=== PATIENT | male | born 1960 | race Caucasian/White ===

== ENCOUNTER 2020-08-07 17:58 | Emergency (ER) | payer OTHER ==
[2020-08-07 18:11] VITALS: BP 146/91; PULSE 71; BMI 32.1
[2020-08-07 18:12] VITALS: TEMP 98.2
--- NOTE | 2020-08-07 18:43 | PDOC ---
History of Present Illness - General Chief Complaint: Injury Stated Complaint: HIT HEAD Time Seen by Provider: 08/07/20 18:30 History Source: Patient Exam Limitations: Clinical Condition - History of Present Illness Initial Comments: 08/07/20 18:46 Patient with no significant past medical history present for evaluation status post accidentally hitting his forward with a wooden log while doing woodwork 2 hours ago. Patient reported no pain now. Denies blurry vision, change in vision, nausea, vomiting, dizziness. Patient denies any symptoms. Patient came in for evaluation as he was asked by his to come in for evaluation. Occurred: reports: just prior to arrival Past History - Medical History Allergies/Adverse Reactions: Allergies Allergy/AdvReac Type Severity Reaction Status Date / Time codeine Allergy Severe Nausea Verified 08/07/20 18:08 Home Medications: Ambulatory Orders Lisinopril [Zestril] 40 mg PO DAILY 12/19/15 Omeprazole 20 mg PO DAILY 12/19/15 Sildenafil Citrate 20 mg PO DAILY 12/19/15 Ibuprofen/Diphenhydramine HCl [Advil Pm Liqui-Gels] 1 each PO BID #0 12/22/15 Collagenase Clostridium Hist. [Santyl] 1 applic TP DAILY #90 oint...g. 04/14/18 Mupirocin Cream [Bactroban 2% Cream -] 1 applic TP DAILY #1 tube 05/01/18 Collagenase Clostridium Hist. [Santyl] 1 applic TP DAILY #90 oint...g. 05/12/18 Mupirocin Cream [Bactroban 2% Cream -] 1 applic TP DAILY #1 tube 05/12/18 Collagenase Clostridium Hist. [Santyl] 1 applic TP DAILY #90 oint...g. 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) COPD: No Diabetes: Yes (BORDERLINE) GI Disorders: Yes (GERD) - Psycho-Social/Smoking History Smoking History: Former smoker Have you smoked in the past 12 months: No Number of Cigarettes Smoked Daily: 0 If you are a former smoker, when did you quit?: 2019 Information on smoking cessation initiated: No - Substance Abuse Hx (Audit-C & DAST Scrn) How often the patient has a drink containing alcohol: Monthly or less Number of drinks the patient has on a typical day: 1 or 2 How often the patient has six or more drinks on one occasion: Never Score: In Men: 4 or > Positive; In Women: 3 or > Positive: 1 Screen Result (Pos requires Nsg. Audit-10AR): Negative In the last yr the pt used illegal drug/Rx for NonMed reason: No Score: Yes response is considered Positive: 0 Screen Result (Positive result requires Nsg. DAST-10): Negative Review of Systems - Review of Systems Able to Perform ROS?: Yes Is the patient limited Faroese proficient: No Constitutional: No: Chills, Fever, Malaise HEENTM: No: Symptoms Reported, See HPI, Eye Pain, Blurred Vision, Tearing, Recent change in vision, Double Vision, Cataracts, Ear Pain, Ocular Prothesis, Ear Discharge, Nose Pain, Nose Congestion, Tinnitus, Nose Bleeding, Hearing Loss, Throat Pain, Throat Swelling, Mouth Pain, Dental Problems, Difficulty Swallowing, Mouth Swelling, Other Respiratory: No: Symptoms reported, See HPI, Cough, Orthopnea, Shortness of Breath, SOB with Exertion, SOB at Rest, Stridor, Wheezing, Productive cough, Hemoptysis, Other Cardiac (ROS): No: Symptoms Reported, See HPI, Chest Pain, Edema, Irregular Heart Rate, Lightheadedness, Palpitations, Syncope, Chest Tightness, Other ABD/GI: No: Symptoms Reported, Nausea, Vomiting Musculoskeletal: No: Symptoms Reported, See HPI, Muscle Pain Integumentary: No: Symptoms Reported, Bruising, Change in Color, Erythema Neurological: No: Symptoms reported, See HPI, Headache, Numbness, Paresthesia, Weakness, Unsteady Gait, Dizziness All Other Systems: Reviewed and Negative *Physical Exam - Vital Signs Last Vital Signs Temp Pulse Resp BP Pulse Ox 98.2 F 71 18 146/91 98 08/07/20 18:08 08/07/20 18:08 08/07/20 18:08 08/07/20 18:08 08/07/20 18:08 - Physical Exam 08/07/20 18:55 GENERAL: Well developed, well nourished. Awake and alert. No acute distress. HEENT: Normocephalic, atraumatic. PERRLA, EOMI. No conjunctival pallor. Sclera are non- icteric. Moist mucous membranes. Oropharynx is clear. NECK: Supple. Full ROM. PULMONARY: No evidence of respiratory distress. MUSCULOSKELETAL Normal range of motion at all joints. No bony deformities or tenderness. SKIN: Warm and dry. Normal capillary refill. No forehead ecchymosis, bruising or open wounds. No erythema to forehead or skin of the scalp. NEUROLOGICAL: Alert, awake, appropriate. Cranial nerves 2-12 intact. No deficits to light touch in face, upper extremities and lower extremities. No motor deficits in the in face, upper extremities and lower extremities. Normal speech. Normal tandem walking. Gait is normal without ataxia. PSYCHIATRIC: Cooperative. Good eye contact. Appropriate mood and affect. General Appearance: Yes: Nourished, Appropriately Dressed. No: Apparent Distress Medical Decision Making - Medical Decision Making 08/07/20 18:53 Patient with no significant past medical history present for evaluation status post accidentally hitting his forward with a wooden log while doing woodwork 2 hours ago. Patient reported no pain now. Denies blurry vision, change in vision, nausea, vomiting, dizziness. Patient denies any symptoms. Patient came in for evaluation as he was asked by his to come in for evaluation. Clinical exam unremarkable with normal neuro exam. Pupil equal and reflective to light bilateral. Patient walking with normal gait. Normal tandem walking. Symptoms likely forehead contusion which has resolved now. Discussed with patient the option of doing a head CT versus observation and advised patient CT is not warranted at this time as he is asymptomatic and patient agrees. Patient educated on postconcussion syndrome and advised to come back to the emergency room if worsening symptoms for reevaluation and possible head CT . Patient stable for discharge and left department with normal gait without distress Discharge - Discharge Information Problems reviewed: Yes Clinical Impression/Diagnosis: Head contusion Qualifiers: Encounter type: initial encounter Contusion of head detail: unspecified part of head Qualified Code(s): S00.93XA - Contusion of unspecified part of head, initial encounter Condition: Improved Disposition: HOME - Admission No - Follow up/Referral Referrals: Phan Palacios MD [Primary Care Provider] - - Patient Discharge Instructions Patient Printed Discharge Instructions: DI for Postconcussion Syndrome Additional Instructions: Your exam is normal at this time and shows no concerning symptoms of intracranial bleeding or abnormality at this time. Observe for any new symptoms including worsening headache, lightheadedness, nausea, excessive sleepiness and come right back to the emergency room if new symptoms or worsening symptoms for reevaluation and possible head CAT scan. - Post Discharge Activity
== END 2020-08-07 18:44 | disposition home or self-care (01) ==
LOC: JERFT 17:58
DX: S00.93XA Contusion of unspecified part of head, initial encounter (principal)
CPT/HCPCS: 99283-25

== ENCOUNTER 2022-02-06 16:36 | Emergency (ER) | payer OTHER ==
[2022-02-06 17:03] VITALS: BP 156/89; PULSE 95; TEMP 98.6; BMI 33.5
== END 2022-02-06 23:02 | disposition home or self-care (01) ==
LOC: JER 16:36
DX: S00.03XA Contusion of scalp, initial encounter (principal); W19.XXXA Unspecified fall, initial encounter
CPT/HCPCS: 70450-TC; 71046-TC-FY; 72125-TC; 99284-25

== ENCOUNTER 2022-07-18 08:06 | Inpatient (IN) | payer OTHER ==
[2022-07-18 08:26] VITALS: BMI 24.4
[2022-07-18] MEDS ORDERED: FAMOTIDINE 20 MG/50 ML IVPB 20 MG/50 ML MG IVPB ONE ×2 (08:43→08:51)
[2022-07-18] MEDS ORDERED: SODIUM CHLORIDE 0.9% 500 ML INFUS.BAG IV ONE (08:43)
[2022-07-18] MEDS ORDERED: ACETAMINOPHEN 1000 MG/100 ML BAG IVPB ONE (08:43)
[2022-07-18] MEDS ORDERED: ACETAMINOPHEN INJECTION 100 ML IVPB ONE (08:50)
[2022-07-18] MEDS ORDERED: MAG HYDROX/AL HYDROX/SIMETH 30 ML UNIT-DOSE CUP ONE (08:51)
[2022-07-18] MEDS ORDERED: MAG HYDROX/AL HYDROX/SIMETH 30 ML UNIT-DOSE CUP PO ONE (09:15)
[2022-07-18 10:16] LABS: BASO % 0.1 % (0-2.0); EOS % 0.1 % (0-4.5); HEMATOCRIT 47.9 % (35.4-49); HEMOGLOBIN 16.3 GM/dL (11.7-16.9); LYMPH % 4.7 % (8-40); MCH 31.1 pg (25.7-33.7); MCHC 34.1 g/dl (32.0-35.9); MEAN CELL VOLUME 91.3 fl (80-96); MEAN PLT VOLUME 8.3 fl (7.5-11.1); MONO % 8.9 % (3.8-10.2); NEUT % 86.2 % (42.8-82.8); PLATELET COUNT 239 10^3/uL (134-434); RBC 5.25 M/mm3 (4.00-5.60); WHITE BLOOD COUNT 14.5 K/mm3 (4.0-10.0)
[2022-07-18 10:21] LABS: ALBUMIN 3.6 g/dl (3.4-5.0); BLOOD UREA NITROGEN 23.9 mg/dL (7-18)
[2022-07-18 10:24] LABS: CREATININE 1.3 mg/dL (0.55-1.3)
[2022-07-18 10:25] LABS: LACTIC ACID 4.7 mmol/L (0.4-2.0); TOT PROT 7.3 g/dl (6.4-8.2)
[2022-07-18] MEDS ORDERED: LACTATED RINGERS SOLUTION 1000 ML INFUS.BAG IV ONE (10:46)
[2022-07-18] MEDS ORDERED: ONDANSETRON 4 MG/2 ML VIAL IVPUSH ONE (10:51)
[2022-07-18 11:05] LABS: ACTIVATED PTT 27.5 SECONDS (25.2-36.5); INR 1.07 (0.83-1.09); PROTHROMBIN TIME (PATIENT) 12.3 SEC (9.7-13.0)
[2022-07-18] MEDS ORDERED: ONDANSETRON 4 MG/2 ML VIAL ONE (11:33)
[2022-07-18 11:45] LABS: CALCIUM 8.6 mg/dL (8.5-10.1)
[2022-07-18 11:46] LABS: BLOOD UREA NITROGEN 21.8 mg/dL (7-18)
[2022-07-18 11:58] LABS: LACTIC ACID 2.9 mmol/L (0.4-2.0)
[2022-07-18] MEDS ORDERED: ONDANSETRON 4 MG/2 ML VIAL IVPUSH PRN (13:05)
[2022-07-18] MEDS ORDERED: LORazepam 2 MG/ML SDV VIAL IVPUSH PRN (13:06)
[2022-07-18] MEDS ORDERED: SODIUM CHLORIDE 0.9%/KCL 20 MEQ/1,000 ML INFUS.BAG IV SCH (13:15)
[2022-07-18] MEDS ORDERED: MAG HYDROX/AL HYDROX/SIMETH -MYLANTA- ORAL SUSPENSION PO SCH (14:00)
[2022-07-18] MEDS: ACETAMINOPHEN 1000 MG/100 ML BAG IVPB PRN (15:22)
[2022-07-18] MEDS ORDERED: IBUPROFEN 800 MG/8 ML IJ IVPB PRN (15:29)
[2022-07-18] MEDS: amLODIPine BESYLATE 10 MG TABLET (FP) PO SCH (15:42)
[2022-07-18] MEDS: LISINOPRIL 20 MG TABLET PO SCH (15:42)
[2022-07-18] MEDS ORDERED: PNEUMOC 20-VAL CONJ-DIP CRM/PF 0.5 ML SYRINGE IM ONE (17:30)
[2022-07-18] MEDS ORDERED: chlordiazePOXIDE HCL 25 MG CAPSULE PO PRN (18:04)
[2022-07-18] MEDS ORDERED: metoPROLOL SUCCINATE 25 MG TAB.SR.24H (FP) PO ONE (18:06)
[2022-07-18] MEDS: chlordiazePOXIDE HCL 25 MG CAPSULE PO SCH ×2 (18:15→22:04)
[2022-07-18] MEDS: ENOXAPARIN NA (PORCINE) 40 MG/0.4 ML DISP.SYRIN SQ SCH (18:16)
[2022-07-18] MEDS: metoPROLOL SUCCINATE 25 MG TAB.SR.24H (FP) PO SCH (21:55)
[2022-07-19] MEDS: chlordiazePOXIDE HCL 25 MG CAPSULE PO SCH ×4 (05:35→22:11)
[2022-07-19] MEDS: ACETAMINOPHEN 1000 MG/100 ML BAG IVPB PRN (05:35)
[2022-07-19] MEDS ORDERED: SODIUM CHLORIDE 0.9%/KCL 20 MEQ/1,000 ML INFUS.BAG IV SCH (08:46)
[2022-07-19] MEDS: ENOXAPARIN NA (PORCINE) 40 MG/0.4 ML DISP.SYRIN SQ SCH (08:59)
[2022-07-19] MEDS: LISINOPRIL 20 MG TABLET PO SCH (09:00)
[2022-07-19] MEDS: metoPROLOL SUCCINATE 25 MG TAB.SR.24H (FP) PO SCH ×2 (09:00→22:10)
[2022-07-19] MEDS: amLODIPine BESYLATE 10 MG TABLET (FP) PO SCH (09:01)
[2022-07-19] MEDS: PANTOPRAZOLE SODIUM 40 MG VIAL IVPUSH SCH (09:05)
[2022-07-19 09:43] LABS: BASO % 0.1 % (0-2.0); EOS % 0.1 % (0-4.5); HEMOGLOBIN 14.6 GM/dL (11.7-16.9); LYMPH % 5.1 % (8-40); MCH 30.5 pg (25.7-33.7); MCHC 33.3 g/dl (32.0-35.9); MEAN CELL VOLUME 91.7 fl (80-96); MEAN PLT VOLUME 8.1 fl (7.5-11.1); MONO % 8.6 % (3.8-10.2); NEUT % 86.1 % (42.8-82.8); PLATELET COUNT 192 10^3/uL (134-434); RBC 4.79 M/mm3 (4.00-5.60); RDW 14.1 % (11.9-15.9); WHITE BLOOD COUNT 15.1 K/mm3 (4.0-10.0)
[2022-07-19 10:05] LABS: CALCIUM 8.4 mg/dL (8.5-10.1)
[2022-07-19 10:06] LABS: ALBUMIN 3.2 g/dl (3.4-5.0)
[2022-07-19 10:07] LABS: CREATININE 0.6 mg/dL (0.55-1.3)
[2022-07-19 10:09] LABS: BILIRUBIN,TOTAL 1.3 mg/dL (0.2-1); TOT PROT 6.6 g/dl (6.4-8.2)
[2022-07-19] MEDS ORDERED: IBUPROFEN 800 MG/8 ML IJ IVPB PRN (10:09)
[2022-07-19] MEDS ORDERED: LACTATED RINGERS SOLUTION 1,000 ML/1,000 ML INFUS.BAG IV SCH ×4 (10:15→16:45)
[2022-07-19] MEDS: IBUPROFEN 800 MG/8 ML IJ IVPB PRN ×2 (12:44→18:05)
[2022-07-19] MEDS ORDERED: LABETALOL HCL 100 MG TABLET (FP) PO ONE (13:37)
[2022-07-19] MEDS ORDERED: HYDROCHLOROTHIAZIDE 25 MG TABLET (FP) PO SCH (13:45)
[2022-07-19] MEDS: KCL 10 MEQ IVPB 10 MEQ/100 ML INFUS.BAG IVPB SCH ×2 (15:20→16:46)
[2022-07-19] MEDS ORDERED: ACETAMINOPHEN 1000 MG/100 ML BAG IVPB PRN (16:00)
[2022-07-20] MEDS: chlordiazePOXIDE HCL 25 MG CAPSULE PO SCH ×4 (06:06→22:36)
[2022-07-20] MEDS ORDERED: LABETALOL HCL 100 MG TABLET (FP) PO ONE (06:49)
[2022-07-20 08:27] LABS: BASO % 0.2 % (0-2.0); EOS % 0.2 % (0-4.5); HEMATOCRIT 39.1 % (35.4-49); HEMOGLOBIN 13.1 GM/dL (11.7-16.9); LYMPH % 4.7 % (8-40); MCH 30.6 pg (25.7-33.7); MCHC 33.5 g/dl (32.0-35.9); MEAN CELL VOLUME 91.6 fl (80-96); MEAN PLT VOLUME 8.2 fl (7.5-11.1); NEUT % 86.9 % (42.8-82.8); PLATELET COUNT 156 10^3/uL (134-434); RBC 4.27 M/mm3 (4.00-5.60); RDW 13.8 % (11.9-15.9); WHITE BLOOD COUNT 11.7 K/mm3 (4.0-10.0)
[2022-07-20 08:51] LABS: CALCIUM 8.2 mg/dL (8.5-10.1)
[2022-07-20 08:52] LABS: ALBUMIN 2.8 g/dl (3.4-5.0); BLOOD UREA NITROGEN 14.8 mg/dL (7-18)
[2022-07-20 08:53] LABS: CREATININE 0.6 mg/dL (0.55-1.3)
[2022-07-20 08:54] LABS: BILIRUBIN,DIRECT 0.4 mg/dL (0.0-0.2)
[2022-07-20 08:55] LABS: PHOSPHOROUS 1.9 mg/dL (2.5-4.9); TOT PROT 5.7 g/dl (6.4-8.2)
[2022-07-20 08:57] LABS: BILIRUBIN,TOTAL 1.1 mg/dL (0.2-1)
[2022-07-20] MEDS: ENOXAPARIN NA (PORCINE) 40 MG/0.4 ML DISP.SYRIN SQ SCH (09:57)
[2022-07-20] MEDS: PANTOPRAZOLE SODIUM 40 MG VIAL IVPUSH SCH (09:58)
[2022-07-20] MEDS: amLODIPine BESYLATE 10 MG TABLET (FP) PO SCH (09:58)
[2022-07-20] MEDS: metoPROLOL SUCCINATE 25 MG TAB.SR.24H (FP) PO SCH ×2 (09:58→22:32)
[2022-07-20] MEDS ORDERED: LISINOPRIL 20 MG TABLET PO ONE (10:00)
[2022-07-20] MEDS ORDERED: IBUPROFEN 800 MG/8 ML IJ IVPB PRN (13:44)
[2022-07-20] MEDS ORDERED: hydrALAZINE HCL 25 MG TABLET (FP) PO ONE (15:26)
[2022-07-20] MEDS ORDERED: LABETALOL HCL 200 MG TABLET (FP) PO ONE (15:26)
[2022-07-20] MEDS ORDERED: LACTATED RINGERS SOLUTION 1,000 ML/1,000 ML INFUS.BAG IV SCH (15:26)
[2022-07-20] MEDS: POTASSIUM CHLORIDE TABS 20 MEQ TABLET.ER (FP) PO SCH (17:01)
[2022-07-20] MEDS ORDERED: NAPH,MB-DB/K PH,MBDB POWDER PACKET PO ONE (17:52)
[2022-07-20] MEDS ORDERED: MELATONIN 5 MG TABLETS PO ONE ×2 (22:54→22:56)
[2022-07-21] MEDS ORDERED: chlordiazePOXIDE HCL 10 MG CAPSULE PO PRN
[2022-07-21] MEDS: chlordiazePOXIDE HCL 10 MG CAPSULE PO SCH ×3 (05:53→17:03)
[2022-07-21] MEDS ORDERED: LISINOPRIL 20 MG TABLET PO ONE (06:06)
[2022-07-21 08:38] LABS: HEMATOCRIT 38.2 % (35.4-49); MCH 31.5 pg (25.7-33.7); MCHC 34.1 g/dl (32.0-35.9); MEAN CELL VOLUME 92.3 fl (80-96); MEAN PLT VOLUME 7.7 fl (7.5-11.1); PLATELET COUNT 172 10^3/uL (134-434); RBC 4.13 M/mm3 (4.00-5.60); RDW 13.8 % (11.9-15.9); WHITE BLOOD COUNT 11.4 K/mm3 (4.0-10.0)
[2022-07-21 08:58] LABS: ALBUMIN 2.7 g/dl (3.4-5.0); BLOOD UREA NITROGEN 10.3 mg/dL (7-18); CALCIUM 8.5 mg/dL (8.5-10.1)
[2022-07-21 09:01] LABS: CREATININE 0.5 mg/dL (0.55-1.3)
[2022-07-21 09:03] LABS: BILIRUBIN,TOTAL 1.1 mg/dL (0.2-1); TOT PROT 6.2 g/dl (6.4-8.2)
[2022-07-21] MEDS ORDERED: LISINOPRIL 20 MG TABLET PO SCH (10:00)
[2022-07-21] MEDS: ENOXAPARIN NA (PORCINE) 40 MG/0.4 ML DISP.SYRIN SQ SCH (10:08)
[2022-07-21] MEDS: amLODIPine BESYLATE 10 MG TABLET (FP) PO SCH (10:08)
[2022-07-21] MEDS: POLYETHYLENE GLYCOL (HEALTHYLAX) 3350 17 GM PACKET PO SCH (10:08)
[2022-07-21] MEDS: POTASSIUM CHLORIDE TABS 20 MEQ TABLET.ER (FP) PO SCH (10:09)
[2022-07-21] MEDS ORDERED: LACTATED RINGERS SOLUTION 1,000 ML/1,000 ML INFUS.BAG IV SCH (13:30)
[2022-07-21 14:57] VITALS: RESP 18
[2022-07-22] MEDS: chlordiazePOXIDE HCL 10 MG CAPSULE PO SCH (00:21)
[2022-07-22] MEDS: POLYETHYLENE GLYCOL (HEALTHYLAX) 3350 17 GM PACKET PO SCH ×2 (00:22→09:36)
[2022-07-22] MEDS ORDERED: chlordiazePOXIDE HCL 10 MG CAPSULE PO SCH (05:00)
[2022-07-22 08:57] LABS: HEMATOCRIT 37.9 % (35.4-49); HEMOGLOBIN 12.8 GM/dL (11.7-16.9); MCHC 33.8 g/dl (32.0-35.9); MEAN CELL VOLUME 91.6 fl (80-96); MEAN PLT VOLUME 7.6 fl (7.5-11.1); PLATELET COUNT 217 10^3/uL (134-434); RBC 4.14 M/mm3 (4.00-5.60); RDW 13.9 % (11.9-15.9); WHITE BLOOD COUNT 10.4 K/mm3 (4.0-10.0)
[2022-07-22 09:30] VITALS: BP 158/93; TEMP 99.1
[2022-07-22 09:30] LABS: CALCIUM 8.4 mg/dL (8.5-10.1)
[2022-07-22 09:31] LABS: ALBUMIN 2.5 g/dl (3.4-5.0); BLOOD UREA NITROGEN 12.6 mg/dL (7-18)
[2022-07-22 09:34] LABS: CREATININE 0.6 mg/dL (0.55-1.3)
[2022-07-22 09:35] LABS: BILIRUBIN,TOTAL 0.9 mg/dL (0.2-1)
[2022-07-22] MEDS: POTASSIUM CHLORIDE TABS 20 MEQ TABLET.ER (FP) PO SCH (09:36)
[2022-07-22] MEDS: ENOXAPARIN NA (PORCINE) 40 MG/0.4 ML DISP.SYRIN SQ SCH (09:36)
[2022-07-22] MEDS: amLODIPine BESYLATE 10 MG TABLET (FP) PO SCH (09:36)
[2022-07-22] MEDS ORDERED: LISINOPRIL 20 MG TABLET PO SCH (10:00)
[2022-07-22 12:24] VITALS: PULSE 110
[2022-07-23] MEDS ORDERED: chlordiazePOXIDE HCL 10 MG CAPSULE PO ONE (05:00)
== END 2022-07-22 14:30 | disposition left against medical advice (07) | DRG 282 ==
LOC: JER 08:06 → JERBED 11:11 → J7W 14:53
PROVIDERS: ADMIT Internal Medicine; ATTEND Internal Medicine
PROC: HZ2ZZZZ Detoxification Services for Substance Abuse Treatment (ICD-10-PCS; principal; 2022-07-18)
DX: K85.20 Alcohol induced acute pancreatitis without necrosis or infection (principal); E87.70 Fluid overload, unspecified; E78.5 Hyperlipidemia, unspecified; E87.6 Hypokalemia; F10.229 Alcohol dependence with intoxication, unspecified; F10.239 Alcohol dependence with withdrawal, unspecified; I16.0 Hypertensive urgency; R09.02 Hypoxemia; R10.13 Epigastric pain; R11.2 Nausea with vomiting, unspecified; E66.9 Obesity, unspecified; Z68.34 Body mass index [BMI] 34.0-34.9, adult
CPT/HCPCS: 36415; 71045-TC-FY; 74177-TC; 76705-TC; 80048; 80053; 82248; 83036; 83605; 83615; 83690; 83735; 84100; 84478; 85025; 85027; 85610; 85730; 86140; 87081; 90677; 93005; 93010; 94010; 94761; 99285-25; C9803-CS; U0003; U0005

== ENCOUNTER 2024-06-09 07:59 | Emergency (ER) | payer OTHER ==
[2024-06-09 08:08] VITALS: BP 158/90; PULSE 83; RESP 18; TEMP 99.1; BMI 47.0
[2024-06-09 09:40] LABS: EPI CELLS 3 /uL (0-25.1); HYALINE CASTS 0 /uL (0-3.1); URINE APPEARANCE CLEAR; URINE BILIRUBIN NEGATIVE (NEGATIVE); URINE COLOR DK YELLOW; URINE GLUCOSE (UA) NEGATIVE (NEGATIVE); URINE KETONE NEGATIVE (NEGATIVE); URINE LEUK ESTERASE NEGATIVE (NEGATIVE); URINE NITRITE POSITIVE (NEGATIVE); URINE PROTEIN 1+ (NEGATIVE); URINE RBC 25 /uL (0-23.9); URINE WBC 11 /uL (0-25.8)
[2024-06-09 09:42] LABS: BASO % 0.2 % (0-2.0); EOS % 0.2 % (0-4.5); HEMATOCRIT 37.6 % (35.4-49); HEMOGLOBIN 12.8 GM/dL (11.7-16.9); MCH 28.7 pg (25.7-33.7); MCHC 34.1 g/dl (32.0-35.9); MEAN CELL VOLUME 84.3 fl (80-96); MONO % 8.1 % (3.8-10.2); NEUT % 84.5 % (42.8-82.8); PLATELET COUNT 284 10^3/uL (134-434); RBC 4.46 M/mm3 (4.00-5.60); RDW 13.4 % (11.9-15.9); WHITE BLOOD COUNT 14.2 K/mm3 (4.0-10.0)
[2024-06-09 10:51] LABS: CREATININE 0.8 mg/dL (0.55-1.3)
[2024-06-09 10:52] LABS: ALBUMIN 3.6 g/dl (3.4-5.0); BILIRUBIN,TOTAL 0.7 mg/dL (0.2-1); CALCIUM 9.3 mg/dL (8.5-10.1); POTASSIUM 3.9 mmol/L (3.5-5.1); TOT PROT 7.2 g/dl (6.4-8.2)
[2024-06-09 11:21] LABS: BLOOD UREA NITROGEN 14.5 mg/dL (7-18)
[2024-06-09] MEDS ORDERED: SULFAMETHOXAZOLE/TRIMETHOPRIM 800MG/160MG D.S. TABLET ONE (11:44)
[2024-06-09] MEDS ORDERED: ACETAMINOPHEN 325 MG TABLET (FP) ONE (11:58)
[2024-06-09] MEDS: SULFAMETHOXAZOLE/TRIMETHOPRIM 800MG/160MG D.S. TABLET PO ONE (12:10)
[2024-06-09] MEDS: ACETAMINOPHEN 325 MG TABLET (FP) PO ONE (12:10)
[2024-06-09 12:27] LABS: URINE BACTERIA 5.6 /uL (0-1359)
== END 2024-06-09 12:30 | disposition home or self-care (01) ==
LOC: JER 07:59
DX: R33.9 Retention of urine, unspecified (principal); R10.30 Lower abdominal pain, unspecified; R30.0 Dysuria; R35.0 Frequency of micturition; N39.0 Urinary tract infection, site not specified
CPT/HCPCS: 36415; 80053; 81003; 85025; 87086; 99283-25

== ENCOUNTER 2025-06-23 15:29 | Observation (INO) | payer OTHER ==
[2025-06-23] MEDS ORDERED: PANTOPRAZOLE SODIUM 40 MG VIAL ONE (16:59)
[2025-06-23] MEDS: PANTOPRAZOLE SODIUM 40 MG VIAL IVPUSH ONE (17:05)
[2025-06-23 17:12] LABS: ABSOLUTE IMMATURE GRANULOCYTES 0.01 x10^3/uL (0.0-0.031); BASOPHILS # 0.03 x10^3/uL (0.01-0.08); EOSINOPHIL % 1.5 % (0.8-7.0); EOSINOPHILS # 0.08 x10^3/uL (0.04-0.54); MCHC 33.2 g/dl (32.3-36.5); MEAN CELL VOLUME 86.4 fl (79.0-92.2); MEAN PLT VOLUME 9.7 fl (9.4-12.4); MONOCYTE # 0.12 x10^3/uL (0.30-0.82); MONOCYTE % 2.2 % (5.3-12.2); RDW 12.4 % (12.2-16.4)
[2025-06-23 17:22] LABS: ALK PHOS 199.0 U/L (45-117); CO2 27.0 mmol/L (21-32); CREATININE 0.7 mg/dl (0.6-1.3); GLUCOSE,RANDOM 101.0 mg/dl (74-106); SGOT/AST 342.0 U/L (15-37); SGPT/ALT 447.0 U/L (7-52); TOT PROT 6.5 g/dl (6.4-8.2)
[2025-06-23 21:25] LABS: HIV INTERPRETATION NEGATIVE (NEGATIVE)
[2025-06-23 21:26] LABS: HCV DIAGNOSTIC IN-HOUSE W/RFLX NON-REACTIVE (NONREACTIVE)
[2025-06-23 22:56] VITALS: BMI 38.2
[2025-06-23] MEDS: SODIUM CHLORIDE 0.9%/KCL 20 MEQ/1,000 ML INFUS.BAG IV SCH (23:53)
[2025-06-23] MEDS: TAMSULOSIN HCL 0.4 MG CAP PO SCH (23:54)
[2025-06-23] MEDS: ONDANSETRON 4 MG/2 ML VIAL IVPUSH ONE (23:55)
[2025-06-24 07:47] LABS: ABSOLUTE IMMATURE GRANULOCYTES 0.01 x10^3/uL (0.0-0.031); BASOPHILS # 0.03 x10^3/uL (0.01-0.08); EOSINOPHIL % 2.1 % (0.8-7.0); EOSINOPHILS # 0.08 x10^3/uL (0.04-0.54); MCHC 33.0 g/dl (32.3-36.5); MEAN CELL VOLUME 87.3 fl (79.0-92.2); MEAN PLT VOLUME 9.3 fl (9.4-12.4); MONOCYTE # 0.13 x10^3/uL (0.30-0.82); MONOCYTE % 3.5 % (5.3-12.2); RDW 12.4 % (12.2-16.4)
[2025-06-24 08:00] LABS: INR 1.3 (0.83-1.09); PROTHROMBIN TIME (PATIENT) 14.4 SEC (9.7-13.0)
[2025-06-24 08:03] LABS: ACTIVATED PTT 28.9 SECONDS (25.2-36.5)
[2025-06-24 08:37] LABS: ALK PHOS 146.0 U/L (45-117); CO2 27.0 mmol/L (21-32); CREATININE 0.6 mg/dl (0.6-1.3); GLUCOSE,RANDOM 103.0 mg/dl (74-106); SGOT/AST 114.0 U/L (15-37); SGPT/ALT 278.0 U/L (7-52); TOT PROT 5.4 g/dl (6.4-8.2)
[2025-06-24] MEDS: LISINOPRIL 20 MG TABLET PO SCH (09:19)
[2025-06-24 11:19] VITALS: BP 128/78; PULSE 62; RESP 18; TEMP 98.3
[2025-06-24] MEDS: POTASSIUM CHLORIDE ORAL LIQUID 20 MEQ/15 ML PO ONE (12:12)
[2025-06-24 15:51] LABS: HCV DIAGNOSTIC IN-HOUSE W/RFLX NON-REACTIVE (NONREACTIVE)
== END 2025-06-24 12:42 | disposition left against medical advice (07) ==
LOC: FER 15:29 → FM/S 20:47 → UNDOADMOB 22:13
PROVIDERS: ATTEND Student in an Organized Health Care Education/Training Program
DX: R10.13 Epigastric pain (principal); R11.2 Nausea with vomiting, unspecified; R77.8 Other specified abnormalities of plasma proteins; N40.0 Benign prostatic hyperplasia without lower urinary tract symptoms; F10.21 Alcohol dependence, in remission; Z87.19 Personal history of other diseases of the digestive system; Z85.51 Personal history of malignant neoplasm of bladder; Z88.5 Allergy status to narcotic agent; Z87.891 Personal history of nicotine dependence
CPT/HCPCS: 36415; 71046-TC-FY; 74177-TC; 76700-TC; 80053; 81003; 81015; 82248; 83690; 83735; 84100; 84484; 85025; 85610; 85730; 86706; 86709; 86803; 86850; 86900; 86901; 87086; 87340; 87389; 93005; 93010; 99285-25; G0378; Q9967